=== PATIENT | male | born 1950 | race Caucasian/White ===

== ENCOUNTER 2016-11-19 11:50 | Emergency (ER) ==
[2016-11-19 13:39] LABS: MANUAL DIFF NEEDED? NO
[2016-11-19 13:42] LABS: BASO% 0.5 % (0.0-0.8); EOS# 0.08 X1000 (0.0-0.7); HEMATOCRIT 45.7 % (42.0-52.0); HEMOGLOBIN 14.8 g/dL (14.0-18.0); LYMPH# 2.82 X1000 (1.2-3.4); LYMPH% 35.6 % (20.5-51.1); MCH 29.2 PG (27-31); MCHC 32.4 g/dL (33-37); MCV 90.3 FL (81-99); MONO# 0.93 X1000 (0.11-0.59); MONO% 11.7 % (1.7-9.3); MPV 9.9 FL (7.4-10.4); NEUT% 51.2 % (42.2-75.2); PLT 296 X1000 (130-400); RBC 5.06 XMIL (4.7-6.1)
[2016-11-19 13:52] LABS: INR 1.02; PROTIME 10.8 Seconds (9.2-11.7); PTT 26.1 Seconds (22.0-36.0)
[2016-11-19 13:56] LABS: AGAP 18; ALBUMIN 3.9 g/dL (3.5-5.0); ALKALINE PHOSPHATASE 83 U/L (32-122); BUN 13 mg/dL (8-22); CALCIUM 8.2 mg/dL (8.8-10.2); CHLORIDE 96 mmol/L (98-107); CK PROFILE 108 U/L (24-204); COSMO 268; GOT 24 U/L (10-34); GPT 20 U/L (10-44); POTASSIUM 3.9 mmol/L (3.5-5.1); SODIUM 133 mmol/L (136-145); TCO2 19 mmol/L (25-35); TOTAL BILIRUBIN 0.38 mg/dL (0.20-1.00); TOTAL PROTEIN 6.8 g/dL (6.3-8.3)
--- NOTE | 2016-11-19 14:37 | Diag Imaging Result Document ---
PROCEDURE NAME: HEAD W/O CONTRAST - 11/19/2016 CT HEAD WITHOUT CONTRAST: COMPARISON: None available. FINDINGS: There is mild patchy low attenuation in the periventricular and subcortical white matter suggesting mild microangiopathy. There is no definite acute infarct given the limited sensitivity of CT versus MRI. There is no discrete intracranial mass, mass effect, or intracranial hemorrhage. There are small air-fluid levels in the sphenoid sinuses suggesting sinus disease. Surrounding soft tissues and bony structures are grossly unremarkable, otherwise. IMPRESSION: No evidence of acute intracranial pathology.
[2016-11-19 14:54] LABS: ALLEN TEST YES; BLOOD TYPE ARTERIAL; DRAW SITE R RADIAL; METHB 2.5 % (0.0-1.5); O2(CT) 18.8 mL/dL (15.0-23.0); PCO2(98.6) 42 mmHg (35-45); PO2(98.6) 64 mmHg (60-100); SAMPLE BLOOD; SAO2 97.5 % (95.0-100.0); THB 14.5 g/dL (11.5-17.4)
[2016-11-19 14:56] LABS: MODALITY ROOM AIR
--- NOTE | 2016-11-19 15:45 | PROVIDER DOCUMENTATION ---
HPI-Musculoskeletal Pain/Inj - GENERAL Source: EMS - HX OF PRESENT ILLNESS-MUSKULOSKELTAL Quality of Pain: reports: dull Severity in ED: mild Onset/Duration: just prior to arrival Timing: improving Similar Symptoms Previously?: No Recently seen or treated by another doctor?: No - FALL INJURY Location of Pain/Injury: reports: head, face (nose) Pain Radiation: reports: no radiation Symptoms prior to fall:: reports: seizure (sizure like symptoms) Injury Associated Symptoms: reports: arm pain <Janet Restrepo - Last Filed: 11/19/16 15:40> <Tommie Trevino - Last Filed: 11/19/16 17:33> - GENERAL Chief Complaint: Altered Mental Status Stated Complaint: SEIZURE Time Seen by Provider: 11/19/16 12:00 - HX OF PRESENT ILLNESS-MUSKULOSKELTAL Nature of Presenting Problem: Pt is a 65 yom who came to the ED with a cc of blacking out and hitting his head. Pt reports he was at [employer] and fell asleep and his friend woke him up and when he woke up he fell in the floor and seemed to be having a seizure. Pt was bleeding from the side of his head and his nose. Pt has a hx of seizures. ( Janet Restrepo) Review of Systems - Adult - REVIEW OF SYSTEMS - ADULT Constitutional: denies: chills, fever Eyes: denies: decreased vision, double vision Ears, Nose, Mouth & Throat: reports: no symptoms reported Cardiovascular: reports: syncope. denies: heart murmur, orthopnea Respiratory: reports: no symptoms reported Gastrointestinal: reports: no symptoms reported Genitourinary: reports: no symptoms reported Musculoskeletal: reports: no symptoms reported Integumentary: reports: no symptoms reported Neurological: reports: seizure, syncope. denies: dizziness/vertigo, numbness Psychiatric: reports: no symptoms reported Endocrine: reports: no symptoms reported Hematologic/Lymphatic: reports: no symptoms reported Allergic/Immunologic: reports: no symptoms reported All Other Systems: Reviewed and Negative <Janet Restrepo - Last Filed: 11/19/16 15:40> Past History - Adult - PAST MEDICAL HISTORY-ADULT Review of Records: reports: Old Records Reviewed, Nursing Assessment Review Major Childhood Illnesses: reports: denies history Cardiovascular: reports: denies history Respiratory: reports: denies history Gastrointestinal: reports: denies history Obstetrical/Gynecological: reports: denies history Genitourinary: reports: denies history Musculoskeletal: reports: denies history Neurological: reports: denies history Endocrine/Immune: reports: denies history Other Conditions: reports: denies history - PRIOR SURGERIES/PROCEDURES Surgical/Procedure History: reports: none - IMMUNIZATION STATUS Childhood Immunizations: See Nurse Assessment Flu Vaccine: See Nurse Assessment - FAMILY HISTORY Family History: reviewed, not pertinent <Janet Restrepo - Last Filed: 11/19/16 15:40> Physical Exam-Injury Related - Physical Exam-Injury Related General Appearance: alert, no apparent distress Eyes: PERRL/EOMI, pink conjunctivae Head, Ears, Nose, Mouth & Throat: normocephalic/atraumatic, moist mucous membranes, other (hematoma on nose) Neck: non-tender Respiratory: chest non-tender, lungs clear Cardiovascular: normal peripheral pulses, regular rate, rhythm Abdominal Exam: normal bowel sounds, non tender Back Exam: normal inspection Extremity: normal range of motion Integumentary: warm/dry Neurologic: grossly normal Psych/Mental Status: normal mood/affect, normal thought content, normal thought process, oriented x 3 <Janet Restrepo - Last Filed: 11/19/16 15:40> Progress <Janet Restrepo - Last Filed: 11/19/16 15:40> <Tommie Trevino - Last Filed: 11/19/16 17:33> - PLAN OF CARE/RESULTS Progress/Plan/Lab Results: Vital Signs - 24 hr 11/19/16 11/19/16 11:53 15:29 Temperature 97.8 F Pulse Rate 101 H 83 Respiratory 18 17 Rate Blood Pressure 115/76 143/90 O2 Sat by Pulse 88 L 97 Oximetry Orders Category Date Time Status Cardiac Monitoring DIRECTED Care 11/19/16 12:56 Active Finger Stick Blood Sugar (ED) DIRECTED Care 11/19/16 12:56 Active Saline Loc NOW Care 11/19/16 12:56 Active HEAD W/O CONTRAST [CT] Stat Exams 11/19/16 12:57 Draft SHOULDER-LEFT [RAD] Stat Exams 11/19/16 13:07 Taken cxr [CHEST-2 VIEWS] [RAD] Stat Exams 11/19/16 13:06 Taken ABG [RESP] Routine Lab 11/19/16 14:45 Completed ALCOHOL BLOOD Stat Lab 11/19/16 12:11 Completed CBC WITH ELECTRONIC DIFF [HEME] Stat Lab 11/19/16 12:11 Completed CK PROFILE [SP CHEM] Stat Lab 11/19/16 12:11 Completed COMPREHENSIVE METABOLIC PANEL [CHEM] Stat Lab 11/19/16 12:11 Completed LACTATE, PLASMA [CHEM] Stat Lab 11/19/16 13:48 Completed PROTIME WITH INR [COAG] Stat Lab 11/19/16 12:11 Completed PTT [COAG] Stat Lab 11/19/16 12:11 Completed TROPONIN T Stat Lab 11/19/16 12:11 Completed URINALYSIS W/POSS RFLX CULT [URINALYSIS] Stat Lab 11/19/16 12:56 Uncollected URINE DRUG SCREEN Stat Lab 11/19/16 12:56 Uncollected Pulse Oximetry Stat Oth 11/19/16 12:56 Active EKG [EKG] Stat Ther 11/19/16 12:56 Ordered Laboratory Tests 11/19/16 11/19/16 11/19/16 12:11 12:11 12:11 WBC 7.93 RBC 5.06 Hgb 14.8 Hct 45.7 MCV 90.3 MCH 29.2 MCHC 32.4 L RDW Std Deviation 13.4 Plt Count 296 MPV 9.9 Immature Gran % (Auto) 0.0 Neut % (Auto) 51.2 Lymph % (Auto) 35.6 [place] % (Auto) 11.7 H Eos % (Auto) 1.0 Baso % (Auto) 0.5 Immature Gran # (Auto) 0.00 Neut # (Auto) 4.06 Lymph # (Auto) 2.82 [place] # (Auto) 0.93 H Eos # (Auto) 0.08 Baso # (Auto) 0.04 PT INR PTT (Actin FS) Specimen Type Sample Site pH pCO2 pO2 HCO3 Base Excess Oxyhemoglobin ABG O2 Sat (Calculated) ABG O2 Saturation ABG Carboxyhemoglobin ABG Methemoglobin Cyril Test A-a O2 Difference Total Hemoglobin Lactate Blood Gas Modality FiO2 % Sodium 133 L Potassium 3.9 Chloride 96 L Carbon Dioxide 19 L Anion Gap 18 BUN 13 Creatinine 1.0 Estimated GFR/1.73 m2 > 60 BUN/Creatinine Ratio 13 Glucose 120 H Calculated Osmolality 268 Calcium 8.2 L Total Bilirubin 0.38 AST 24 ALT 20 Alkaline Phosphatase 83 Creatine Kinase 108 Troponin T Total Protein 6.8 Albumin 3.9 Globulin 2.9 Albumin/Globulin Ratio 1.3 Plasma Lactate Plasma/Serum Ethyl Alc 11/19/16 11/19/16 11/19/16 12:11 12:11 13:48 WBC RBC Hgb Hct MCV MCH MCHC RDW Std Deviation Plt Count MPV Immature Gran % (Auto) Neut % (Auto) Lymph % (Auto) [place] % (Auto) Eos % (Auto) Baso % (Auto) Immature Gran # (Auto) Neut # (Auto) Lymph # (Auto) [place] # (Auto) Eos # (Auto) Baso # (Auto) PT 10.8 INR 1.02 PTT (Actin FS) 26.1 Specimen Type Sample Site pH pCO2 pO2 HCO3 Base Excess Oxyhemoglobin ABG O2 Sat (Calculated) ABG O2 Saturation ABG Carboxyhemoglobin ABG Methemoglobin Cyril Test A-a O2 Difference Total Hemoglobin Lactate Blood Gas Modality FiO2 % Sodium Potassium Chloride Carbon Dioxide Anion Gap BUN Creatinine Estimated GFR/1.73 m2 BUN/Creatinine Ratio Glucose Calculated Osmolality Calcium Total Bilirubin AST ALT Alkaline Phosphatase Creatine Kinase Troponin T < 0.010 Total Protein Albumin Globulin Albumin/Globulin Ratio Plasma Lactate 2.7 H Plasma/Serum Ethyl Alc 11/19/16 14:45 WBC RBC Hgb Hct MCV MCH MCHC RDW Std Deviation Plt Count MPV Immature Gran % (Auto) Neut % (Auto) Lymph % (Auto) [place] % (Auto) Eos % (Auto) Baso % (Auto) Immature Gran # (Auto) Neut # (Auto) Lymph # (Auto) [place] # (Auto) Eos # (Auto) Baso # (Auto) PT INR PTT (Actin FS) Specimen Type ARTERIAL Sample Site R RADIAL pH 7.40 pCO2 42 pO2 64 HCO3 25.6 Base Excess 1.0 Oxyhemoglobin 92.1 L ABG O2 Sat (Calculated) 18.8 ABG O2 Saturation 97.5 ABG Carboxyhemoglobin 3.00 H ABG Methemoglobin 2.5 H Cyril Test YES A-a O2 Difference 33.0 Total Hemoglobin 14.5 Lactate 0.80 Blood Gas Modality ROOM AIR FiO2 % 21.0 Sodium Potassium Chloride Carbon Dioxide Anion Gap BUN Creatinine Estimated GFR/1.73 m2 BUN/Creatinine Ratio Glucose Calculated Osmolality Calcium Total Bilirubin AST ALT Alkaline Phosphatase Creatine Kinase Troponin T Total Protein Albumin Globulin Albumin/Globulin Ratio Plasma Lactate Plasma/Serum Ethyl Alc (Janet Restrepo) Departure <Janet Restrepo - Last Filed: 11/19/16 15:40> - Departure Time of Disposition Order: 17:29 Certified Medical Emergency: Emergent <Tommie Trevino - Last Filed: 11/19/16 17:33> - Departure DIAGNOSIS: Seizure disorder Rotator cuff disorder Qualifiers: Laterality: left Qualified Code(s): M67.912 - Unspecified disorder of synovium and tendon, left shoulder Disposition: HOME 01 Condition: Stable Additional Instructions: fu with your doctor to follow your medication ED Follow Up Instructions: You have been treated by a care provider in the Emergency Department. These instructions are being provided to you so you can have an understanding of how to care for yourself upon discharge. Upon discharge from the Emergency Department, you are responsible for making arrangements for follow-up care by a physician of your choice. Take all prescribed medications as directed. Return to the Emergency Department immediately for any new or worsening symptoms. You may call the Physician Referral phone number at [phone] to obtain a list of Physicians who are taking new patients. Prescriptions: Phenytoin [Dilantin] 300 mg PO DAILY #90 capsule Attestation - Scribe Verification/Attestation Scribe:: Janet Restrepo Acting as Scribe for:: Tommie Trevino Scribe documention review:: This chart was documented by a scribe and accurately reflects the service the provider performed and the decisions made by the provider. <Janet Restrepo - Last Filed: 11/19/16 15:40> Physician Attestation
--- NOTE | 2016-11-19 15:58 | Diag Imaging Result Document ---
PROCEDURE NAME: CHEST-2 VIEWS - 11/19/2016 PA AND LATERAL RADIOGRAPH OF THE CHEST: COMPARISON: None available. FINDINGS: Inspiration is suboptimal. The lungs are grossly clear. There is no definite pleural fluid collection. Cardiac silhouette and central vasculature are grossly unremarkable. IMPRESSION: No definite acute chest pathology.
--- NOTE | 2016-11-19 16:09 | Diag Imaging Result Document ---
PROCEDURE NAME: SHOULDER-LEFT - 11/19/2016 PLAIN RADIOGRAPH OF THE LEFT SHOULDER, 2 VIEWS: COMPARISON: None available. FINDINGS: There is no discrete fracture, dislocation, or intrinsic osseous lesion. The visualized joint spaces are essentially unremarkable. The surrounding soft tissues are grossly unremarkable. IMPRESSION: No evidence of acute osseous abnormality.
[2016-11-19 16:21] LABS: URINE CULTURE NEEDED? NO; URINE MICRO REVIEW NEEDED? NO; URINE SOURCE CLEAN CATCH
[2016-11-19 16:28] LABS: BILIRUBIN URINE NEGATIVE (NEGATIVE); BLOOD URINE TRACE (NEGATIVE); COLOR YELLOW; GLUCOSE URINE NEGATIVE (NEGATIVE); LEUKOCYTES URINE NEGATIVE (NEGATIVE); NITRITE URINE NEGATIVE (NEGATIVE); PH URINE 6.5; PROTEIN URINE TRACE mg/dL (NEGATIVE); SP GRAVITY URINE 1.016; TURBIDITY URINE CLEAR (CLEAR); UR EPITHELIAL CELLS <10 /HPF (<10); URINE BACTERIA NEGATIVE /HPF; URINE RBC <10 /HPF (<10); URINE WBC <10 /HPF (<10); UROBILINOGEN URINE NORMAL (NORMAL)
[2016-11-19 16:35] LABS: UR AMPHETAMINES QUAL NONE DETECTED (NONE DETECT); UR BARBITUATES QUAL NONE DETECTED (NONE DETECT); UR BENZODIAZEPIN QUAL NONE DETECTED (NONE DETECT); UR CANNABINOIDS QUAL NONE DETECTED (NONE DETECT); UR COCAINE QUAL NONE DETECTED (NONE DETECT); UR METHADONE QUAL NONE DETECTED (NONE DETECT); UR OPIATES QUAL NONE DETECTED (NONE DETECT); UR OXYCODONE QUAL NONE DETECTED (NONE DETECT); UR PCP QUAL NONE DETECTED (NONE DETECT)
[2016-11-19] MEDS ORDERED: DILANTIN PO ONE (17:30)
[2016-11-19 17:50] VITALS: BP 113/83
--- NOTE | 2016-11-20 05:34 | EKG Report ---
Test Performed on : 11/19/2016 12:01:43 PM Test Reason : AMS Blood Pressure : / mmHG Vent. Rate : 094 BPM Atrial Rate : 094 BPM P-R Int : 124 ms QRS Dur : 090 ms QT Int : 364 ms P-R-T Axes : 042 056 044 degrees QTc Int : 455 ms Normal sinus rhythm. Possible Lateral infarct , age undetermined Abnormal ECG No previous ECGs available Unconfirmed Result
== END 2016-11-19 17:58 | disposition home or self-care (01) ==
LOC: EDBD → EDUNIT# → ED 11:50
DX: G40.909 Epilepsy, unspecified, not intractable, without status epilepticus (principal); M67.912 Unspecified disorder of synovium and tendon, left shoulder; W19.XXXA Unspecified fall, initial encounter; R55 Syncope and collapse; S00.33XA Contusion of nose, initial encounter
CPT/HCPCS: 70450; 71020; 80053; 81001; 82550; 82805; 82948; 83605; 84484; 85025; 85610; 85730; 93005; G0480; 80320; 80324; 80345; 80346; 80349; 80353; 80358; 80361; 80365; 83992